=== PATIENT | male | born 1970 | race Caucasian/White ===

== ENCOUNTER 2020-10-25 18:12 | Outpatient (CLI) | payer BC, SELFPAY ==
--- NOTE | 2020-10-25 | DI.RAD_ITS ---
Exam(s) XR KNEE RT 3V AP,LAT,RANDI EXAM: XR KNEE RT 3V AP,LAT,RANDI CLINICAL HISTORY: RIGHT KNEE PAIN. TECHNIQUE: 2D digital imaging was performed. COMPARISON: No exams were available for comparison FINDINGS: BONES: No acute fracture is present. No bony destructive lesion is seen. Mild narrowing of the medial femoral tibial joint. Periarticular spurring in the lateral femoral tibial joint and the patellofem oral joint. There is an enthesophyte at the superior patella. JOINTS: The knee is normally aligned. There is a moderate joint effusion. There is a density adjacen t to the lateral femoral condyle which may represent a loose body. SOFT TISSUE: Normal. IMPRESSION: 1. Osteoarthritis of the right knee. 2. Question of a loose body in the lateral joint compartment. 3. Moderate joint effusion. MRI may be considered if there is concern for internal derangement. DATA REPOSITORY: RADIATION DOSE DELIVERED:
--- NOTE | 2020-10-25 19:09 | DI.VRAD_ITS ---
PROCEDURE INFORMATION: Exam: XR Right Knee Exam date and time: 10/25/2020 6:22 PM Age: 50 years old Clinical indication: Injury or trauma; Fall; Sprain or strain; Patella or knee; Right TECHNIQUE: Imaging protocol: XR Right knee. Views: 3 views. COMPARISON: No relevant prior studies available. FINDINGS: Bones/joints: Mild medial compartment joint space narrowing. Mild tricompartmental degenerative spurring. Moderate joint effusion. Small superior pole patellar enthesophyte. Calcific density distal to the lateral femoral condyle may represent an intra-articular body. No fracture or dislocation. Soft tissues: Normal. IMPRESSION: 1. Osteoarthritis with mild medial compartment joint space narrowing. 2. Possible intra-articular body. 3. Chronic distal quadriceps enthesopathy. 4. Moderate joint effusion. Consider non urgent MRI if there is persistent clinical concern for internal derangement. Dictated and Authenticated by: Marquise Rutherford MD. Ordering:MAYRA Ballard MD
== END 2020-10-25 18:32 ==
PROVIDERS: PCP Family Medicine; Visit Provider Physician Assistant Medical
DX: M25.561 Pain in right knee (principal); M17.11 Unilateral primary osteoarthritis, right knee; M25.461 Effusion, right knee
CPT/HCPCS: 73562

== ENCOUNTER 2020-12-17 11:54 | Outpatient (CLI) | payer BC, SELFPAY ==
--- NOTE | 2020-12-17 10:23 | DI.RAD_ITS ---
Exam(s) XR KNEE RT 2V AP,LAT EXAM: XR KNEE RT 2V AP,LAT CLINICAL HISTORY: R knee pain. TECHNIQUE: 2D digital imaging was performed. COMPARISON: Prior x-rays 10/25/2020 FINDINGS: There is no evidence of fracture. On these weight-bearing views there is mild narrowing of medial co mpartment evident. Lateral compartment is normal height. Bone density normal. No osseous lesions IMPRESSION: DATA REPOSITORY: RADIATION DOSE DELIVERED:
== END 2020-12-17 11:55 | disposition home or self-care (01) ==
LOC: DIORS 11:55
PROVIDERS: PCP Family Medicine; Visit Provider Physician Assistant
DX: M25.561 Pain in right knee (principal)
CPT/HCPCS: 73560

== ENCOUNTER 2021-01-25 04:08 | Outpatient (CLI) | payer BC, SELFPAY ==
--- NOTE | 2021-01-25 06:45 | DI.MRI_ITS ---
Exam(s) MR LOWER JOINT RT WO EXAM: MR LOWER JOINT RT WO CLINICAL HISTORY: internal derangement right knee,M23.91 TECHNIQUE: Multiplanar multisequence MRI was performed.. COMPARISON: CR XR KNEE RT 2V AP,LAT from 12/17/2020 FINDINGS: MR examination of the knee was performed according to the usual protocol. There is a small knee joint effusion. There is tiny Page's cyst as well. There are areas of abnormal signal in the medial tibial plateau and medial femoral condyle subjacent to cartilage abnormalities and presumably representing degenerative changes. There are marginal oste ophytes of the tibia and femur at the tibial femoral joints. Medial tibiofemoral joint: The articular cartilage of the femur and tibia is markedly thinned with mu ltiple bare areas of the medial tibial plateau and medial femoral condyle, particularly laterally and posteriorly period. There is an apparent chronic meniscal tear with markedly deficient peripherally displaced meniscus period. The medial collateral ligament appears intact. No posteromedial corner injury seen. Lateral tibiofemoral joint: The articular cartilage of the femur and tibia shows slight thinning and mild signal abnormalities consistent with degenerative change. The meniscus and attachments appear i ntact. The lateral collateral ligament complex and posterolateral corner structures appear intact. Patellofemoral joint and extensor mechanism: The articular cartilage of the patellofemoral joint show s significant thinning superiorly and medially period. The superior and inferior patellar fat pads s how mildly abnormal signal, nonspecific. There is a fluid collection anterior to the proximal portion of the patellar tendon consistent with a prepatellar bursitis. The quadriceps tendon and patellar tendon appear intact with no evidence of a tear or significant clinton ma. The medial and lateral retinacula appear intact. Cruciate ligaments: Cruciate ligaments and attachments appear normal with no evidence of a tear. Tibiofibular joint: No specific abnormality involving the tibiofibular joint. IMPRESSION: Degenerative cartilage changes involving medial and superior aspect of the patellar trochlear joint a nd the medial tibiofemoral joint as described above. Medial meniscal tear noted. Additional minor f indings as described. DATA REPOSITORY:
== END 2021-01-25 04:28 ==
PROVIDERS: PCP Family Medicine; Visit Provider Student in an Organized Health Care Education/Training Program
DX: M23.91 Unspecified internal derangement of right knee (principal); S83.242A Other tear of medial meniscus, current injury, left knee, initial encounter; M17.11 Unilateral primary osteoarthritis, right knee
CPT/HCPCS: 73721

== ENCOUNTER 2021-02-05 13:15 | Outpatient (CLI) | payer BC, SELFPAY ==
--- NOTE | 2021-02-05 13:00 | DI.RAD_ITS ---
Exam(s) XR STANDING ALIGNMENT XR KNEE RT 1V EXAM: XR KNEE RT 1V CLINICAL HISTORY: right knee internal derangement f/u. TECHNIQUE: 2D digital imaging was performed. Standing AP views were performed from the pelvis throu gh the ankles. COMPARISON: CR,XR XR KNEE RT 3V AP,LAT,RANDI from 10/25/2020 CR,XR XR KNEE RT 3V AP,LAT,RANDI from 10/25/2020 CR XR KNEE RT 2V AP,LAT from 12/17/2020 CR XR KNEE RT 2V AP,LAT from 12/17/2020 MR MR LOWER JOINT RT WO from 01/25/2021 CR XR STANDING ALIGNMENT from 02/05/2021 CR XR STANDING ALIGNMENT from 02/05/2021 FINDINGS: BONES: No acute fracture is present. No bony destructive lesion is seen. JOINTS: Knees: Moderate narrowing medial femoral tibial joint space. Periarticular spurring througho ut. Cell femoral joint well maintained. There is spurring at the articular aspect of the patella as well as the quadriceps insertion. There are mild degenerative changes in the left knee. The ankle and hip joints are unremarkable. SOFT TISSUE: Normal. IMPRESSION: Degenerative changes, greatest of the medial femoral tibial joint space of right knee. No significan t leg length discrepancy. DATA REPOSITORY: RADIATION DOSE DELIVERED:
== END 2021-02-05 13:16 | disposition home or self-care (01) ==
LOC: DIORS 13:16
PROVIDERS: PCP Family Medicine; Referring Provider Family Medicine; Visit Provider Student in an Organized Health Care Education/Training Program
DX: M23.91 Unspecified internal derangement of right knee (principal); M17.11 Unilateral primary osteoarthritis, right knee
CPT/HCPCS: 73560; 77073

== ENCOUNTER 2022-12-26 01:51 | Outpatient (CLI) | payer BC, SELFPAY ==
[2022-12-26 07:59] LABS: HCT 45.9 % (40.0-50.0); HGB 15.8 g/dL (13.5-17.5); MCH 30.1 pg (27.0-33.0); MCHC 34.4 % (32.0-36.0); MCV 87 fL (80-95); MPV 9.1 fL (8.0-11.0); Platelet Count 258 10^3/uL (130-400); RBC 5.25 10^6/uL (4.36-5.78); RDW 12.8 % (11.8-14.1); RDW-SD 40.9 fL; WBC 5.06 10^3/uL (4.4-10.8)
[2022-12-26 08:19] LABS: Hemoglobin A1C 5.5 % (<5.7)
[2022-12-26 08:23] LABS: ALT 53 U/L (16-63); AST 37 U/L (15-37); Albumin 4.1 g/dL (3.4-5.0); Alkaline Phosphatase 93 U/L (46-116); Anion Gap 4.6 mmol/L (3-11); BUN 11 mg/dL (7-18); Bilirubin, Total 0.7 mg/dL (0.2-1.0); CO2 30.4 mmol/L (21.0-32.0); CREATININE 1.2 mg/dL (0.70-1.30); Calcium 9.3 mg/dL (8.5-10.1); Calculated LDL 130 mg/dL (<100); Chloride 103 mmol/L (98-107); Cholesterol 208 mg/dL (<200); Estimated GFR 72.76 (mL/min/1.73m2); Glucose 109 mg/dL (74-106); HDL Cholesterol 72 mg/dL (40-60); Potassium 4.2 mmol/L (3.5-5.1); Sodium 138 mmol/L (136-145); Total Protein 7.7 g/dL (6.4-8.2); Triglyceride 33 mg/dL (<150)
[2022-12-29 08:20] LABS: PSA, Screening 0.2 ng/mL (<=3.5)
== END 2022-12-26 01:52 | disposition home or self-care (01) ==
LOC: LBO 01:51
PROVIDERS: PCP Family Medicine; Visit Provider Family Medicine
DX: Z00.00 Encounter for general adult medical examination without abnormal findings (principal)
CPT/HCPCS: 36415; 80053; 80061; 84153; 85027; 83036; 84443

== ENCOUNTER 2024-09-15 16:22 | Outpatient (CLI) | payer OTHER, SELFPAY ==
[2024-09-15 17:01] LABS: Hemoglobin A1C 5.4 % (<5.7)
[2024-09-15 17:18] LABS: Calculated LDL 111 mg/dL (<100); Cholesterol 187 mg/dL (<200); HDL Cholesterol 68 mg/dL (>or=40); Triglyceride 43 mg/dL (<150)
[2024-09-16 18:18] LABS: PSA, Screening 0.3 ng/mL (<=3.5)
== END 2024-09-15 16:23 | disposition home or self-care (01) ==
LOC: LBO 16:23
PROVIDERS: PCP Family Medicine; Visit Provider Family Medicine
DX: Z00.00 Encounter for general adult medical examination without abnormal findings (principal)
CPT/HCPCS: 36415; 80061; 84153; 83036

== ENCOUNTER 2025-02-03 03:25 | Outpatient (CLI) | payer OTHER, SELFPAY ==
[2025-02-03 13:18] LABS: Abs Immature Grans 0.01 10^3/uL (0.0-0.06); HCT 42.0 % (40.0-50.0); HGB 14.2 g/dL (13.5-17.5); Immature Grans % 0.2 %; MCH 29.5 pg (27.0-33.0); MCHC 33.8 % (32.0-36.0); MCV 87 fL (80-95); MPV 9.0 fL (8.0-11.0); Platelet Count 219 10^3/uL (130-400); RBC 4.81 10^6/uL (4.36-5.78); RDW 13.0 % (11.8-14.1); RDW-SD 41.1 fL; WBC 6.39 10^3/uL (4.4-10.8)
[2025-02-03 14:52] LABS: ALT 47 U/L (16-63); AST 53 U/L (15-37); Albumin 4.3 g/dL (3.4-5.0); Alkaline Phosphatase 90 U/L (46-116); Anion Gap 7.2 mmol/L (3-11); BUN 18 mg/dL (7-18); Bilirubin, Total 0.7 mg/dL (0.2-1.0); CO2 28.8 mmol/L (21.0-32.0); Calcium 9.6 mg/dL (8.5-10.1); Chloride 103 mmol/L (98-107); Estimated GFR 79.77 (mL/min/1.73m2); Glucose 98 mg/dL (74-106); Potassium 4.0 mmol/L (3.5-5.1); Sodium 139 mmol/L (136-145); Total Protein 7.7 g/dL (6.4-8.2)
== END 2025-02-03 03:26 | disposition home or self-care (01) ==
PROVIDERS: PCP Family Medicine; Visit Provider Family Medicine
DX: Z00.00 Encounter for general adult medical examination without abnormal findings (principal)
CPT/HCPCS: 36415; 80053; 85025